=== PATIENT | male | born 1995 | race African-American/Black ===

== ENCOUNTER → 2018-10-05 | Emergency (ER) | payer SELFPAY ==
[~2018-10-05] VITALS: Ht 177.8 cm; Wt 74.8 kg
[~2018-10-05] MED LIST: PROMETHAZINE-C118 M1 ORAL
[2018-10-05 05:40] VITALS: BP 112/73
--- NOTE | 2018-10-05 05:40 | NUR ---
ED Nurse Note: Pt been coughing for 2 weeks, he went to his MD 5 days ago but meds are not working well. His Md took x ray, Pt has no PNA. Pt feels nausea and vomited sometimes. pt is complaining of 10/10 generalized body pain. ermd on bedside. will continue to monitor.
--- NOTE | 2018-10-05 05:50 | Emergency Room Report ---
History of Present Illness General Chief Complaint: General Complaint Source: Patient Present Illness HPI Is a 23-year-old male who said he gets bronchitis severe. He presents with chief complaint of coughing for the last week and a half to 2 weeks. He saw primary care recently and prescribed azithromycin, Tessalon Perles, albuterol, Qvar and another cough medicine. Not getting better. Coughing to the point of vomiting. No nausea no vomiting. No fever or chills. Also said he had a chest x-ray was negative. Denies any other complaint. Coughing is nonproductive in nature. Allergies: Uncoded Allergies: ROBOTUSSIN (Allergy, Unknown, 10/05/18) Patient History Past Medical History: see triage record, old chart reviewed Past Surgical History: none Pertinent Family History: none Social History: Reports: drug use - Marijuana Immunizations: other Reviewed Nursing Documentation: PMH: Agreed; PSxH: Agreed Nursing Documentation-PMH Hx COPD: Yes - Bronchitis Review of Systems Eye: Denies: eye pain, blurred vision ENT: Denies: ear pain, nose congestion, throat swelling Respiratory: Reports: cough, shortness of breath Cardiovascular: Denies: chest pain, palpitations Gastrointestinal: Denies: abdominal pain, diarrhea, nausea, vomiting Musculoskeletal: Denies: back pain, joint pain Skin: Denies: rash Neurological: Denies: headache, numbness Endocrine: Denies: increased thirst, increased urine Hematologic/Lymphatic: Denies: easy bruising All Other Systems: negative except mentioned in HPI Physical Exam Vital Signs Date Time Temp Pulse Resp B/P (MAP) Pulse Ox O2 Delivery O2 Flow Rate FiO2 10/05/18 05:31 98.1 86 19 112/73 97 Room Air vitals normal Sp02 EP Interpretation: reviewed, normal General Appearance: well appearing, no apparent distress, alert Head: normocephalic, atraumatic Eyes: bilateral eye PERRL, bilateral eye EOMI ENT: hearing grossly normal, normal pharynx Neck: full range of motion, supple, no meningismus Respiratory: chest non-tender, lungs clear, normal breath sounds Cardiovascular #1: regular rate, rhythm, no murmur Gastrointestinal: normal bowel sounds, non tender, no mass, no organomegaly, no bruit, non-distended Musculoskeletal: back normal, gait/station normal, normal range of motion Psychiatric: mood/affect normal Skin: warm/dry Medical Decision Making Diagnostic Impression: Primary Impression: Acute bronchitis Qualified Codes: J20.9 - Acute bronchitis, unspecified ER Course Issue with acute bronchitis. Most likely viral in nature. No wheezing. Oxidation normal. No evidence of pneumonia, sepsis, ACS, PE, dissection to name a few. We'll discharge home with symptomatically treatment. Last Vital Signs Date Time Temp Pulse Resp B/P (MAP) Pulse Ox O2 Delivery O2 Flow Rate FiO2 10/05/18 05:31 98.1 86 19 112/73 97 Room Air Status: unchanged Disposition: HOME, SELF-CARE Condition: Stable Scripts Codeine/Promethazine Hcl* (PROMETHAZINE-CODEINE SYRUP*) 118 Ml Syrup 5 ML ORAL Q6H PRN for For Cough, #120 ML 0 Refills Prov: Bobby Kaur MD 10/05/18 Additional Instructions: Follow-up with your doctor in 7 days. Return if symptom worsen. Bobby Kaur MD Oct 05, 2018 05:49
[2018-10-05 05:55] VITALS: BP 112/73
== END | disposition home or self-care (01) ==
LOC: EMR 05:50
DX: J20.9 Acute bronchitis, unspecified (principal)
CPT/HCPCS: 99282